=== PATIENT | female | born 1970 | race Caucasian/White ===

== ENCOUNTER 2022-09-05 08:36 | Outpatient (CLI) | payer OTHER, MEDICARE, SELFPAY | END 2022-09-05 08:37 | disposition home or self-care (01) | LOC: AMB 09-24 12:39 | PROVIDERS: Visit Provider Family Medicine | DX: S29.9XXA Unspecified injury of thorax, initial encounter (principal); S19.9XXA Unspecified injury of neck, initial encounter; V43.53XA Car driver injured in collision with pick-up truck in traffic accident, initial encounter; Y92.411 Interstate highway as the place of occurrence of the external cause | CPT/HCPCS: A0425; A0427 ==

== ENCOUNTER 2022-09-05 09:18 | Emergency (ER) | payer OTHER, MEDICARE, SELFPAY ==
[2022-09-05] VITALS (11 sets, daily range): BP systolic 118–132; BP diastolic 85–96; PULSE 62–73; RESP 18; TEMP 35.8; O2SAT 98–100; BMI 22.7
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
--- NOTE | 2022-09-05 09:24 | ED.NURSE ---
Patient to radiology for scans via cot.
[2022-09-05 09:34] LABS: Basophils Absolute Auto 0.08 K/uL (0.00-0.30); Basophils Percent Auto 1.3 % (0.0-3.0); Eosinophils Percent Auto 6.4 % (0.0-7.0); Hematocrit 40.6 % (33.0-51.0); Hemoglobin* 13.3 gm/dL (12.0-16.0); Lymphocytes Absolute Auto 2.02 K/uL (0.90-2.90); Lymphocytes Percent Auto 32.4 % (20-44); Mean Corpuscular HGB Conc 33 gm/dL (32-36); Mean Corpuscular Hemoglobin 30 pg (26-34); Mean Corpuscular Volume 93 fL (80-100); Monocytes Percent Auto 6.7 % (0.0-11.0); Neutrophils Absolute Auto 3.31 K/uL (1.7-7.0); Neutrophils Percent Auto 53.2 % (42.0-72.0); Platelet Count* 255 K/uL (140-440); RDW Coefficient of Variation % 13.2 % (11.5-15.5); Red Blood Count 4.37 m/uL (4.00-5.20); White Blood Count* 6.23 K/uL (4.50-11.00)
[2022-09-05 09:36] LABS: Slide Review Reflex No
--- NOTE | 2022-09-05 09:41 | ED.NURSE ---
Patient back from radiology.
[2022-09-05 09:50] LABS: Albumin* 4.3 g/dL (3.3-5.0); Chloride* 109 mmol/L (96-114); Sodium* 142 mmol/L (135-149)
[2022-09-05 09:51] LABS: Potassium* 3.1 mmol/L (3.6-5.1)
[2022-09-05 09:53] LABS: Alanine Aminotransferase* 21 U/L (4-35); Alkaline Phosphatase* 95 U/L (40-150); Aspartate Amino Transferase* 22 U/L (12-35); Bilirubin Direct* 0.2 mg/dL (0.0-0.5); Bilirubin Total* 0.3 mg/dL (0.1-1.5); Blood Urea Nitrogen* 21 mg/dL (7-30); Carbon Dioxide* 24 mmol/L (20-32); Creatinine* 1.2 mg/dL (0.5-1.5); Estimated Glomerular Filt Rate 54 ml/min; Glucose* 95 mg/dL (60-115); INR 0.89 (0.91-1.10); Prothrombin Time 12.6 Seconds
[2022-09-05 09:54] LABS: Calcium* 8.8 mg/dL (8.4-10.6)
[2022-09-05] MEDS: HYDROmorphone 0.5 mg/0.5 ml inj IVP (09:54)
[2022-09-05 09:55] LABS: Partial Thromboplastin Time* 28 Seconds (23-33)
[2022-09-05] MEDS: KETOROLAC 30 MG/ML inj IVP (09:57)
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
[2022-09-05 10:05] LABS: Troponin I* < 0.01 ng/mL (0.01-0.04)
[2022-09-05 11:17] LABS: Appearance Urine Slightly Cloudy (Clear); Bilirubin Urine Negative (Negative); Blood Urine Negative (Negative); Color Urine Yellow (Yellow); Glucose Urine Negative (Negative); Ketones Urine Negative (Negative); Leukocyte Esterase Urine 1+ (Negative); Nitrite Urine Negative (Negative); Protein Urine Negative (Negative); Specific Gravity Urine 1.015 (1.000-1.030); Urobilinogen Urine 0.2 (0.2-1.0); pH Urine 6.5 (5.0-8.5)
[2022-09-05 11:26] LABS: Amorphous Sediment Urine Few; Bacteria Urine Few; Squamous Epithelial Cell Urine Few (None-Few)
--- NOTE | 2022-09-05 12:05 | ED.NURSE ---
IV dc'd without complication, catheter intact. Patient on the phone trying to find rental car/plan for this afternoon. Patient advocate assisting.
== END 2022-09-05 12:46 | disposition home or self-care (01) ==
PROVIDERS: Emergency Provider Family Medicine
DX: M54.2 Cervicalgia (principal); R51.9 Headache, unspecified
CPT/HCPCS: 36415; 70450; 71250; 72125; 74176; 80048; 80076; 81001; 84484; 85025; 85610; 85730; 87086; 93005; 96374; 96375; 99285; 99291; G0390; J1170; J1885